=== PATIENT | female | born 1970 | race Caucasian/White ===

== ENCOUNTER 2023-12-07 10:29 | Emergency (ER) | payer OTHER ==
[~2023-12-07] VITALS: Ht 170.2 cm; Wt 127.3 kg
[2023-12-07] MEDS ORDERED: MULT-1251 PO (10:34)
[2023-12-07] MEDS ORDERED: inhaler IH (10:34)
[2023-12-07 12:34] VITALS: BP 145/78; PULSE 78; RESP 16; TEMP 97.8
== END 2023-12-07 12:51 | disposition home or self-care (01) ==
LOC: EMS 11:08
DX: R76.11 Nonspecific reaction to tuberculin skin test without active tuberculosis (principal); F17.210 Nicotine dependence, cigarettes, uncomplicated; Z02.79 Encounter for issue of other medical certificate
CPT/HCPCS: 71046; 99283